=== PATIENT | female | born 1950 ===

== ENCOUNTER 2023-09-14 13:15 | Outpatient (RCR) | payer OTHER, SELFPAY | END 2023-09-14 23:59 | disposition home or self-care (01) | LOC: RPT 13:15 | PROVIDERS: ATTENDING PHYSICIAN Physical Medicine & Rehabilitation; FAMILY PHYSICIAN Family Medicine | DX: M19.011 Primary osteoarthritis, right shoulder (principal); Z73.6 Limitation of activities due to disability; M25.511 Pain in right shoulder | CPT/HCPCS: 97010; 97110; 97140; 97161 ==

== ENCOUNTER 2024-01-24 05:36 | Emergency (ER) | payer OTHER, SELFPAY ==
[2024-01-24 05:48] VITALS: BP 156/84
[2024-01-24 06:07] VITALS: BMI 24.2
--- NOTE | 2024-01-24 06:30 | ED.GENMED ---
History of Present Illness
General
Chief Complaint: Musculo-Skeletal Complaint
Source: patient
Exam Limitations: none
Time Seen by Provider: 01/24/24 06:19
History of Present Illness
History of Present Illness:
See MDM
Past History
Past History
ED Past Medical History: HTN
Social History
Tobacco: Non-smoker
Phy Exam
Physical Exam
Physical Exam:
See MDM
Course
Orders/Labs/Results
Orders:
Orders
01/24/24 06:28
Acetaminophen with Codeine [Tylenol #3] 1 tablet PO NOW STA
Ibuprofen [Motrin] 600 mg PO NOW STA
Ondansetron Orally Disint [Zofran Odt (Orally Disintegrating)] 4 mg PO NOW STA
Vital Signs
Initial and Last Documented VS:
Initial Vital Signs
Temp Pulse Resp BP Pulse Ox
98.2 F 85 18 156/84 99
01/24/24 05:48 01/24/24 05:48 01/24/24 05:48 01/24/24 05:48 01/24/24 05:48
Last Documented Vital Signs
Temp Pulse Resp BP Pulse Ox
98.2 F 85 18 156/84 99
01/24/24 05:48 01/24/24 05:48 01/24/24 05:48 01/24/24 05:48 01/24/24 05:48
MDM/Problems Addressed
Differential Diagnosis Includes:
HPI and MDM Narrative:
73-year-old female presenting with right knee pain and swelling. She has a history of arthritis and knee pain. The orthopedist injected steroids in her knee on Thursday. She felt pain-free on Thursday so she started to golf. Pain return mid round.
Patient is having trouble walking due to pain. She took naproxen last night she states she already had an x-ray on Thursday. She denies any recent trauma
There is mild swelling to the medial aspect of the right knee. There is no effusion. We discussed low yield and x-ray. Patient is questioning whether or not she would benefit from an MRI. We discussed having this discussion with her orthopedist
in the outpatient setting. The joint is otherwise stable and no skin changes. Will give pain medicine and continue to monitor
Physical exam
General: Well appearing and non-toxic
HEENT: protecting airway
Neck: appears supple
CV: No evidence of cyanosis
Resp: No accessory muscle use
Abd: Non-distended
Extremities: Mild swelling and tenderness to right medial knee without effusion. Joint stable. No skin changes. Distal extremity neurovascularly intact
Neuro: alert
Psych: Normal affect
Skin: Intact
Problems Addressed including Acute and Chronic Conditions affecting care:
1. Right knee pain
Acuity: acute
Prognosis: stable
Details: Likely in setting of arthritis and overuse. Will provide pain control and Yuriy wrap
Updates
7:30 AM patient feeling much better and feels comfortable going home
Differential Diagnosis (but not limited to): Osteoarthritis, meniscal tear, knee strain
Testing considered: X-ray but she denies any recent trauma and states she already had one
Drug therapy (if applicable): OTC meds, please see d/c instruction regarding Rx drugs
Amount and/or Complexity of Data Reviewed
Clinical info obtained from: Patient
External data reviewed: N/A
Labs I independently reviewed (but not limited to): N/A
Radiology: N/A
Pulse Ox: not hypoxic
EKG independently reviewed: N/A
Criminal Profiler: N/A
Critical Care: N/A
Risk of Complication:
Social Determinants of health: Good social support
Discussed with other providers: N/A
Escalation of Care includes Admit/Obs: After being observed in the Emergency Department, pt stable for discharge.
Occasional wrong word or 'sound a like' substitutions may have occurred due to the inherent limitations of voice recognition software. Read the chart carefully and recognize, using context, where substitutions have occurred.
*Critical Care Note
Total Time (30-74mins, 75-104mins- exclusive of procedures): Not Applicable
ED Attending Note
-
Portions of this chart may have been created with voice recognition software.� Occasional wrong word or��sound alike� substitutions may have occurred due to the inherent limitations of voice recognition software.
Discharge Plan
Departure
Patient Disposition: Home (Routine Discharge)
Date of Disposition: 01/24/24
Time of Disposition: 07:30
Patient with high blood pressure during this ER visit?: Yes
Discharge Problem:
Acute knee pain
Instructions: Knee Pain (DC), BLOOD PRESSURE
Prescriptions:
New
acetaminophen-codeine 300-30 mg Tablet
1 tab PO TID PRN (Reason: Pain) Qty: 10 0RF
ondansetron 4 mg Tablet,Disintegrating
4 mg PO BIDPRN PRN (Reason: nausea/vomiting) Qty: 10 0RF
No Action
multivitamin [Multi-Daily] Tablet
1 tab PO DAILY
amlodipine 5 mg Tablet
5 mg PO DAILY
Referrals:
Brooks Regalado DO [Family Provider] -
Activity Restrictions/Additional Instructions:
Please return for any worsening symptoms.
You may return at any time if you have further concerns.
Please call your orthopedist on Thursday.
You were given a prescription for narcotics. If you require this pain medicine, please take a daily [id number] stool softener to avoid constipation.
Thank you for choosing [facility].
Interventions
Interventions:
*Risk Screen - Suicide Last Done: 01/24/24 05:48
*General Assessment Last Done: 01/24/24 05:48
*Neglect/Abuse Screening Last Done: 01/24/24 05:48
ED- Fall Risk Assessment Last Done: 01/24/24 06:10
ED-Musculoskeletal Assessment Last Done: 01/24/24 06:07
Discharge Date and Time
Print Language: BULGARIAN
[2024-01-24] MEDS: MOTRIN 600 MG PO (06:38)
[2024-01-24] MEDS: ZOFRAN ODT (ORALLY DISINTEGRATING) 4 MG PO (06:38)
[2024-01-24] MEDS: TYLENOL #3 1 TABLET PO (06:38)
== END 2024-01-24 07:37 | disposition home or self-care (01) ==
LOC: EMR 05:36
PROVIDERS: EMERGENCY PHYSICIAN Student in an Organized Health Care Education/Training Program; FAMILY PHYSICIAN Family Medicine
DX: M25.561 Pain in right knee (principal); I10 Essential (primary) hypertension
CPT/HCPCS: 99282

== ENCOUNTER 2025-02-22 11:44 | Outpatient (RCR) | payer OTHER, SELFPAY | END 2025-02-22 23:59 | disposition home or self-care (01) | LOC: RPT 11:44 | PROVIDERS: Orthopaedic Surgery Adult Reconstructive Orthopaedic Surgery; ATTENDING PHYSICIAN Orthopaedic Surgery Hand Surgery; FAMILY PHYSICIAN Family Medicine | DX: Z47.1 Aftercare following joint replacement surgery (principal); Z73.6 Limitation of activities due to disability; R26.2 Difficulty in walking, not elsewhere classified; M62.81 Muscle weakness (generalized); R26.89 Other abnormalities of gait and mobility; M25.561 Pain in right knee; Z96.651 Presence of right artificial knee joint | CPT/HCPCS: 97010; 97110; 97112; 97162; 97530 ==

== ENCOUNTER 2025-03-01 10:49 | Outpatient (RCR) | payer OTHER, SELFPAY | END 2025-03-01 23:59 | disposition home or self-care (01) | LOC: RPT 10:49 | PROVIDERS: ATTENDING PHYSICIAN Orthopaedic Surgery Hand Surgery; FAMILY PHYSICIAN Family Medicine | DX: Z47.1 Aftercare following joint replacement surgery (principal); Z73.6 Limitation of activities due to disability; R26.2 Difficulty in walking, not elsewhere classified; M62.81 Muscle weakness (generalized); R26.89 Other abnormalities of gait and mobility; M25.561 Pain in right knee; Z96.651 Presence of right artificial knee joint | CPT/HCPCS: 97112; 97530 ==